=== PATIENT | male | born 1980 | race Caucasian/White ===

== ENCOUNTER 2022-02-12 11:46 | Inpatient (IN) | payer OTHER ==
[2022-02-12] MEDS ORDERED: ONDANSETRON *ODT* 4 MG TABLET SL PRN (12:28)
[2022-02-12] MEDS ORDERED: BENZOCAINE/MENTHOL (CHLORASEPTIC ) LOZENGE MM PRN (12:28)
[2022-02-12] MEDS ORDERED: MAG HYDROX/AL HYDROX/SIMETH 30 ML UNIT-DOSE CUP PO PRN (12:28)
[2022-02-12] MEDS ORDERED: DICYCLOMINE HCL 10 MG CAPSULE PO PRN (12:28)
[2022-02-12] MEDS ORDERED: MAGNESIUM CITRATE 300 ML BOTTLE PO PRN (12:28)
[2022-02-12] MEDS ORDERED: diazePAM 5 MG TABLET PO ONE (12:28)
[2022-02-12] MEDS ORDERED: NICOTINE 10 MG CARTRIDGE (INHALER) IH PRN (12:28)
[2022-02-12] MEDS ORDERED: MAGNESIUM HYDROX 2400MG/30ML ORAL SUSPENSION 30 ML CUP PO PRN (12:28)
[2022-02-12] MEDS ORDERED: ACETAMINOPHEN 325 MG TABLET (FP) PO PRN ×2 (12:28)
[2022-02-12] MEDS ORDERED: METHOCARBAMOL 500 MG TABLET PO PRN (12:28)
[2022-02-12] MEDS ORDERED: IBUPROFEN 400 MG TABLET (FP) PO PRN (12:28)
[2022-02-12] MEDS ORDERED: LOPERAMIDE HCL 2 MG CAPSULE PO PRN (12:28)
[2022-02-12] MEDS ORDERED: BISMUTH SUBSALICYLATE 524 MG/30 ML PO PRN (12:28)
[2022-02-12] MEDS ORDERED: DOCUSATE SODIUM 100 MG CAPSULE (FP) PO PRN (12:32)
[2022-02-12] MEDS ORDERED: LORATADINE 10 MG TABLET PO PRN (12:32)
[2022-02-12] MEDS ORDERED: FAMOTIDINE 20 MG TABLET PO PRN (12:32)
[2022-02-12] MEDS ORDERED: SENNOSIDES 8.6MG TABLET (FP) PO PRN (12:32)
[2022-02-12 13:45] VITALS: BMI 35.5
[2022-02-12] MEDS: hydrOXYzine PAMOATE 25 MG CAPSULE (FP) PO SCH ×3 (15:06→22:15)
[2022-02-12] MEDS: PRENATAL VITAMINS W/ FOLIC ACID TABLET (FP) PO SCH (15:06)
[2022-02-12] MEDS: NICOTINE 14 MG/24 HOURS TOPICAL PATCH TD SCH (15:09)
[2022-02-12 15:40] LABS: HEMOGLOBIN 14.7 GM/dL (11.7-16.9); MCH 29.5 pg (25.7-33.7); MCHC 34.1 g/dl (32.0-35.9); MEAN CELL VOLUME 86.6 fl (80-96); MEAN PLT VOLUME 8.3 fl (7.5-11.1); PLATELET COUNT 99 10^3/uL (134-434); RBC 4.96 M/mm3 (4.00-5.60); RDW 16.5 % (11.9-15.9); WHITE BLOOD COUNT 9.4 K/mm3 (4.0-10.0)
[2022-02-12 15:46] LABS: ALBUMIN 3.7 g/dl (3.4-5.0); BLOOD UREA NITROGEN 5.6 mg/dL (7-18)
[2022-02-12 15:49] LABS: CREATININE 0.7 mg/dL (0.55-1.3)
[2022-02-12 15:51] LABS: BILIRUBIN,TOTAL 2.7 mg/dL (0.2-1); TOT PROT 8.2 g/dl (6.4-8.2)
[2022-02-12] MEDS: diazePAM 5 MG TABLET PO SCH ×2 (17:49→22:15)
[2022-02-12] MEDS: THIAMINE HCL 100 MG TABLET (FP) PO SCH (22:15)
[2022-02-12] MEDS: TRIAMCINOLONE ACET 0.025% CREAM 15 GM TUBE TP SCH (22:16)
[2022-02-12] MEDS: MELATONIN 5 MG TABLETS PO SCH (22:16)
[2022-02-12] MEDS: MOMETASONE FUROATE 220 MCG/IH INHALER IH SCH (22:16)
[2022-02-13] MEDS: ALBUTEROL SO4 HFA INHALER IH PRN ×2 (01:44→22:23)
[2022-02-13] MEDS: hydrOXYzine PAMOATE 25 MG CAPSULE (FP) PO SCH ×5 (05:13→22:20)
[2022-02-13] MEDS: diazePAM 5 MG TABLET PO SCH ×4 (05:13→22:20)
[2022-02-13] MEDS ORDERED: methaDONE HCL 10 MG TABLET ONE (09:28)
[2022-02-13] MEDS ORDERED: methaDONE HCL 40 MG DISPERSABLE TABLET ONE (09:29)
[2022-02-13] MEDS ORDERED: methaDONE HCL 10 MG TABLET PO ONE (10:00)
[2022-02-13] MEDS: PRENATAL VITAMINS W/ FOLIC ACID TABLET (FP) PO SCH (10:19)
[2022-02-13] MEDS: MOMETASONE FUROATE 220 MCG/IH INHALER IH SCH ×2 (10:20→22:23)
[2022-02-13] MEDS: TRIAMCINOLONE ACET 0.025% CREAM 15 GM TUBE TP SCH ×2 (10:20→22:20)
[2022-02-13] MEDS: NICOTINE 14 MG/24 HOURS TOPICAL PATCH TD SCH (10:22)
[2022-02-13] MEDS: THIAMINE HCL 100 MG TABLET (FP) PO SCH (22:20)
[2022-02-13] MEDS: MELATONIN 5 MG TABLETS PO SCH (22:20)
[2022-02-14] MEDS ORDERED: methaDONE HCL 40 MG DISPERSABLE TABLET ONE (04:26)
[2022-02-14] MEDS ORDERED: methaDONE HCL 10 MG TABLET ONE (04:26)
[2022-02-14] MEDS: diazePAM 5 MG TABLET PO SCH ×3 (05:30→22:08)
[2022-02-14] MEDS: hydrOXYzine PAMOATE 25 MG CAPSULE (FP) PO SCH ×5 (05:32→22:09)
[2022-02-14] MEDS ORDERED: methaDONE HCL 10 MG TABLET PO SCH (06:00)
[2022-02-14 06:07] LABS: SARS-CoV-2 NAA Not Detected (Not Detected)
[2022-02-14] MEDS: NICOTINE 14 MG/24 HOURS TOPICAL PATCH TD SCH (10:07)
[2022-02-14] MEDS: PRENATAL VITAMINS W/ FOLIC ACID TABLET (FP) PO SCH (10:11)
[2022-02-14] MEDS: TRIAMCINOLONE ACET 0.025% CREAM 15 GM TUBE TP SCH ×2 (10:11→22:26)
[2022-02-14] MEDS: MOMETASONE FUROATE 220 MCG/IH INHALER IH SCH ×2 (10:13→22:10)
[2022-02-14] MEDS: diazePAM 5 MG TABLET PO PRN ×2 (10:13→17:40)
[2022-02-14] MEDS: ALBUTEROL SO4 HFA INHALER IH PRN ×2 (10:15→22:12)
[2022-02-14 17:36] LABS: BILIRUBIN,TOTAL 2.9 mg/dL (0.2-1)
[2022-02-14] MEDS: THIAMINE HCL 100 MG TABLET (FP) PO SCH (22:08)
[2022-02-14] MEDS: MELATONIN 5 MG TABLETS PO SCH (22:09)
[2022-02-15] MEDS ORDERED: methaDONE HCL 10 MG TABLET ONE (04:10)
[2022-02-15] MEDS ORDERED: methaDONE HCL 40 MG DISPERSABLE TABLET ONE (04:10)
[2022-02-15] MEDS: hydrOXYzine PAMOATE 25 MG CAPSULE (FP) PO SCH (05:18)
[2022-02-15] MEDS ORDERED: diazePAM 5 MG TABLET PO SCH (06:00)
[2022-02-15 09:17] VITALS: BP 134/79; PULSE 92; TEMP 96.9
[2022-02-16] MEDS ORDERED: diazePAM 5 MG TABLET PO ONE (06:00)
== END 2022-02-15 09:26 | disposition home or self-care (01) | DRG 773 ==
LOC: YASAS 11:46 → Y6N 13:11
PROVIDERS: ADMIT Allergy & Immunology; ATTEND Allergy & Immunology
PROC: HZ2ZZZZ Detoxification Services for Substance Abuse Treatment (ICD-10-PCS; principal; 2022-02-12)
DX: F10.230 Alcohol dependence with withdrawal, uncomplicated (principal); F11.20 Opioid dependence, uncomplicated; F13.20 Sedative, hypnotic or anxiolytic dependence, uncomplicated; F12.20 Cannabis dependence, uncomplicated; F17.210 Nicotine dependence, cigarettes, uncomplicated; F19.282 Other psychoactive substance dependence with psychoactive substance-induced sleep disorder; F19.24 Other psychoactive substance dependence with psychoactive substance-induced mood disorder; J44.9 Chronic obstructive pulmonary disease, unspecified; L40.9 Psoriasis, unspecified; B18.2 Chronic viral hepatitis C
CPT/HCPCS: 36415; 80053; 82247; 84075; 84450; 85027; 86780; 87811; C9803-CS; Q0162; U0003; U0005

== ENCOUNTER 2023-12-14 01:15 | Inpatient (IN) | payer OTHER ==
[2023-12-14 01:22] VITALS: BP 147/89; PULSE 67; RESP 18; TEMP 97.8; BMI 20.3
[2023-12-14 04:00] LABS: BASO % 0.6 % (0-2.0); EOS % 1.1 % (0-4.5); HEMATOCRIT 32.4 % (35.4-49); HEMOGLOBIN 11.1 GM/dL (11.7-16.9); LYMPH % 14.8 % (8-40); MCH 29.3 pg (25.7-33.7); MCHC 34.4 g/dl (32.0-35.9); MEAN CELL VOLUME 85.2 fl (80-96); MEAN PLT VOLUME 8.3 fl (7.5-11.1); MONO % 7.1 % (3.8-10.2); NEUT % 76.4 % (42.8-82.8); PLATELET COUNT 127 10^3/uL (134-434); RDW 15.2 % (11.9-15.9); WHITE BLOOD COUNT 6.2 K/mm3 (4.0-10.0)
[2023-12-14 04:19] LABS: POTASSIUM 3.9 mmol/L (3.5-5.1)
[2023-12-14 04:21] LABS: ALBUMIN 3.6 g/dl (3.4-5.0); CALCIUM 8.8 mg/dL (8.5-10.1)
[2023-12-14 04:22] LABS: BLOOD UREA NITROGEN 14.3 mg/dL (7-18)
[2023-12-14 04:24] LABS: CREATININE 0.7 mg/dL (0.55-1.3)
[2023-12-14 04:26] LABS: BILIRUBIN,TOTAL 0.7 mg/dL (0.2-1); TOT PROT 7.1 g/dl (6.4-8.2)
[2023-12-14] MEDS ORDERED: PIPERACILLIN/TAZOB 4.5 GM 4.5 GM/100 ML BAG IVPB ONE (04:36)
[2023-12-14] MEDS ORDERED: VANCOMYCIN 1 GRAM (PRE-DOCKED) 1,000 MG/250 ML BAG IVPB ONE (04:36)
[2023-12-14] MEDS: VANCOMYCIN 1,000 MG in DEXTROSE 5%-WATER - 250 ML IVPB ONE ×3 (06:29→09:26)
[2023-12-14] MEDS: PIPERACILLIN/TAZOB 4.5 GM 4.5 GM in DEXTROSE 5%-WATER 100 ML IVPB ONE ×3 (06:29→08:42)
[2023-12-14] MEDS: DALBAVANCIN HCL 1,500 MG in DEXTROSE 5%-WATER - 500 ML IVPB ONE (07:02)
[2023-12-14] MEDS: LACTATED RINGERS SOLUTION 1000 ML INFUS.BAG IV ONE (07:41)
[2023-12-14] MEDS ORDERED: ACETAMINOPHEN INJECTION 100 ML IVPB ONE (08:04)
[2023-12-14] MEDS ORDERED: KETOROLAC TROMETHAMINE 15 MG/ML VIAL ONE (08:04)
[2023-12-14] MEDS: ACETAMINOPHEN 1000 MG/100 ML BAG IVPB ONE (08:41)
[2023-12-14] MEDS: KETOROLAC TROMETHAMINE 15 MG/ML VIAL IVPUSH ONE (08:41)
[2023-12-14] MEDS ORDERED: ALBUTEROL SO4 HFA INHALER IH PRN (08:45)
[2023-12-14] MEDS ORDERED: methaDONE HCL 40 MG DISPERSABLE TABLET ONE (09:03)
[2023-12-14] MEDS: methaDONE HCL 10 MG TABLET PO ONE (09:14)
[2023-12-14] MEDS ORDERED: ENOXAPARIN NA (PORCINE) 40 MG/0.4 ML DISP.SYRIN SQ ONE (09:57)
[2023-12-14] MEDS: ENOXAPARIN NA (PORCINE) 40 MG/0.4 ML DISP.SYRIN SQ SCH (10:00)
[2023-12-14] MEDS ORDERED: methaDONE HCL 40 MG DISPERSABLE TABLET PO SCH (10:00)
== END 2023-12-14 13:05 | disposition left against medical advice (07) | DRG 383 ==
LOC: JER 01:15 → JERBED 07:11 → J5S 11:15
PROVIDERS: ADMIT Internal Medicine; ATTEND Internal Medicine
DX: L03.032 Cellulitis of left toe (principal); F11.10 Opioid abuse, uncomplicated; J45.909 Unspecified asthma, uncomplicated; S92.912A Unspecified fracture of left toe(s), initial encounter for closed fracture; F17.210 Nicotine dependence, cigarettes, uncomplicated; Y08.89XA Assault by other specified means, initial encounter; Y93.89 Activity, other specified; Y92.89 Other specified places as the place of occurrence of the external cause; Y99.8 Other external cause status
CPT/HCPCS: 36415; 73610-TC-LT-FY; 73630-TC-LT; 80053; 85025; 86140; 87040; 93005; 93010; 99285-25

== ENCOUNTER 2024-04-01 22:52 | Inpatient (IN) | payer OTHER ==
[2024-04-01 22:58] VITALS: BMI 22.3
[2024-04-02 01:40] LABS: EOS % 1.1 % (0-4.5); HEMATOCRIT 31.7 % (35.4-49); HEMOGLOBIN 10.9 GM/dL (11.7-16.9); LYMPH % 15.3 % (8-40); MCH 28.7 pg (25.7-33.7); MCHC 34.3 g/dl (32.0-35.9); MEAN CELL VOLUME 83.5 fl (80-96); MEAN PLT VOLUME 7.7 fl (7.5-11.1); NEUT % 72.6 % (42.8-82.8); PLATELET COUNT 132 10^3/uL (134-434); RBC 3.79 M/mm3 (4.00-5.60); RDW 16.4 % (11.9-15.9)
[2024-04-02] MEDS ORDERED: PIPERACILLIN/TAZOB 4.5 GM 4.5 GM/100 ML BAG IVPB ONE (01:47)
[2024-04-02] MEDS: PIPERACILLIN/TAZOB 4.5 GM 4.5 GM in DEXTROSE 5%-WATER 100 ML IVPB ONE (02:00)
[2024-04-02 02:05] LABS: POTASSIUM 3.5 mmol/L (3.5-5.1)
[2024-04-02 02:07] LABS: ALBUMIN 3.2 g/dl (3.4-5.0); BLOOD UREA NITROGEN 19.5 mg/dL (7-18); CALCIUM 8.9 mg/dL (8.5-10.1)
[2024-04-02 02:09] LABS: CREATININE 0.7 mg/dL (0.55-1.3)
[2024-04-02 02:12] LABS: BILIRUBIN,TOTAL 0.8 mg/dL (0.2-1); TOT PROT 7.2 g/dl (6.4-8.2)
[2024-04-02] MEDS ORDERED: VANCOMYCIN 1 GRAM (PRE-DOCKED) 1,000 MG/250 ML BAG IVPB ONE (02:21)
[2024-04-02] MEDS: VANCOMYCIN 1,000 MG in DEXTROSE 5%-WATER - 250 ML IVPB ONE (02:27)
[2024-04-02] MEDS ORDERED: ACETAMINOPHEN INJECTION 100 ML IVPB ONE (04:02)
[2024-04-02] MEDS: ACETAMINOPHEN 1000 MG/100 ML BAG IVPB ONE (04:06)
[2024-04-02] MEDS ORDERED: ALBUTEROL SO4 HFA INHALER IH PRN (04:56)
[2024-04-02 06:31] LABS: PH,URINE 5.5 (5.0-8.0); URINE APPEARANCE CLEAR; URINE BILIRUBIN NEGATIVE (NEGATIVE); URINE COLOR YELLOW; URINE GLUCOSE (UA) NEGATIVE (NEGATIVE); URINE KETONE NEGATIVE (NEGATIVE); URINE LEUK ESTERASE NEGATIVE (NEGATIVE); URINE NITRITE NEGATIVE (NEGATIVE); URINE PROTEIN NEGATIVE (NEGATIVE)
[2024-04-02] MEDS ORDERED: methaDONE HCL 10 MG TABLET PO SCH (10:00)
[2024-04-02] MEDS ORDERED: ACETAMINOPHEN 325 MG TABLET (FP) PO PRN (10:00)
[2024-04-02 10:02] LABS: HEMATOCRIT 27.2 % (35.4-49); HEMOGLOBIN 9.4 GM/dL (11.7-16.9); MCH 28.6 pg (25.7-33.7); MCHC 34.5 g/dl (32.0-35.9); MEAN CELL VOLUME 82.9 fl (80-96); PLATELET COUNT 114 10^3/uL (134-434); RBC 3.28 M/mm3 (4.00-5.60); RDW 16.4 % (11.9-15.9); RETICULOCYTES 1.16 % (0.5-1.5); WHITE BLOOD COUNT 4.1 K/mm3 (4.0-10.0)
[2024-04-02 10:06] LABS: INR 1.16 (0.83-1.09)
[2024-04-02 10:16] LABS: POTASSIUM 3.8 mmol/L (3.5-5.1)
[2024-04-02 10:17] LABS: CALCIUM 8.3 mg/dL (8.5-10.1)
[2024-04-02 10:19] LABS: ALBUMIN 2.7 g/dl (3.4-5.0); BLOOD UREA NITROGEN 16.9 mg/dL (7-18); MAGNESIUM 1.9 mg/dL (1.8-2.4)
[2024-04-02 10:20] LABS: CHOLESTEROL 123 mg/dL (50-200)
[2024-04-02 10:21] LABS: CREATININE 0.6 mg/dL (0.55-1.3); LDH 187 U/L (87-246); LDL CHOLESTEROL (ONLY SJRH) 73 mg/dL (5-100); PHOSPHOROUS 3.2 mg/dL (2.5-4.9)
[2024-04-02 10:22] LABS: BILIRUBIN,TOTAL 0.7 mg/dL (0.2-1); HDL CHOLESTEROL 44 mg/dL (40-60); IRON SERUM 26 ug/dL (50-175); TOT PROT 5.8 g/dl (6.4-8.2)
[2024-04-02 10:24] LABS: TOTAL IRON BINDING CAPACITY 187 ug/dL (250-450)
[2024-04-02] MEDS: NICOTINE 7 MG/24 HOURS TOPICAL PATCH TD SCH (10:28)
[2024-04-02] MEDS: PIPERACILLIN/TAZOB 3.375 GM 3.375 GM in DEXTROSE 5%-WATER - 50 ML IVPB SCH (10:31)
[2024-04-02 11:11] LABS: HIV INTERPRETATION NEGATIVE (NEGATIVE)
[2024-04-02] MEDS: ENOXAPARIN NA (PORCINE) 40 MG/0.4 ML DISP.SYRIN SQ SCH (14:33)
[2024-04-02 14:39] LABS: BF WBC & OTHER NUCLEATED CELLS 659 /mm3
[2024-04-02 15:21] LABS: BODY FLUID MACROPHAGES 30 %; BODY FLUID MESOTHELIAL 5 %
[2024-04-02] MEDS: CEFAZOLIN SODIUM 2 GM in DEXTROSE 5%-WATER 100 ML IVPB SCH (17:20)
[2024-04-03 08:00] LABS: BASO % 0.9 % (0-2.0); EOS % 1.5 % (0-4.5); HEMATOCRIT 31.8 % (35.4-49); HEMOGLOBIN 10.6 GM/dL (11.7-16.9); LYMPH % 15.5 % (8-40); MCH 27.8 pg (25.7-33.7); MCHC 33.4 g/dl (32.0-35.9); MEAN CELL VOLUME 83.1 fl (80-96); MEAN PLT VOLUME 7.8 fl (7.5-11.1); MONO % 7.2 % (3.8-10.2); NEUT % 74.9 % (42.8-82.8); PLATELET COUNT 169 10^3/uL (134-434); RBC 3.82 M/mm3 (4.00-5.60); RDW 16.7 % (11.9-15.9); WHITE BLOOD COUNT 6.1 K/mm3 (4.0-10.0)
[2024-04-03 08:15] LABS: POTASSIUM 4.4 mmol/L (3.5-5.1)
[2024-04-03] MEDS: PIPERACILLIN/TAZOB 3.375 GM 3.375 GM in DEXTROSE 5%-WATER - 50 ML IVPB SCH (08:15)
[2024-04-03 08:16] LABS: ALBUMIN 2.6 g/dl (3.4-5.0); BLOOD UREA NITROGEN 17.1 mg/dL (7-18); CALCIUM 8.6 mg/dL (8.5-10.1); MAGNESIUM 1.9 mg/dL (1.8-2.4)
[2024-04-03 08:19] LABS: CREATININE 0.7 mg/dL (0.55-1.3)
[2024-04-03 08:20] LABS: INR 1.18 (0.83-1.09); PROTHROMBIN TIME (PATIENT) 13.5 SEC (9.7-13.0)
[2024-04-03 08:21] LABS: BILIRUBIN,TOTAL 0.6 mg/dL (0.2-1)
[2024-04-03] MEDS ORDERED: SUCCINYLCHOLINE CHLORIDE 200 MG/10 ML SYRINGE ONE (10:14)
[2024-04-03] MEDS ORDERED: PROPOFOL 40 ML ONE (10:14)
[2024-04-03] MEDS ORDERED: FENTANYL CITRATE/PF 50 MCG/ML VIAL ONE ×3 (10:17→11:03)
[2024-04-03] MEDS ORDERED: LORazepam 2 MG/ML SDV VIAL IVPUSH PRN (11:10)
[2024-04-03] MEDS ORDERED: ALBUTEROL SO4 HFA INHALER IH PRN (11:10)
[2024-04-03] MEDS ORDERED: ACETAMINOPHEN 325 MG TABLET (FP) PO PRN (11:10)
[2024-04-03 14:08] LABS: BODY FLUID ALBUMIN 1.5 g/dL (Not Estab.)
[2024-04-03 15:18] LABS: PHENCYCLIDINE,URINE NEGATIVE (NEGATIVE); URINE BARBITURATES NEGATIVE (NEGATIVE)
[2024-04-03 15:19] LABS: URINE BENZODIAZEPINES NEGATIVE (NEGATIVE)
[2024-04-03 15:29] LABS: COCAINE, UR POSITIVE (NEGATIVE); METHADONE, UR POSITIVE (NEGATIVE); OPIATES, URI POSITIVE (NEGATIVE); URINE AMPHETAMINES POSITIVE (NEGATIVE)
[2024-04-03] MEDS: VANCOMYCIN/WATER FOR INJ (PEG) 1,000 MG/200 ML BAG IVPB SCH (15:47)
[2024-04-03] MEDS ORDERED: KETOROLAC TROMETHAMINE 15 MG/ML VIAL IM PRN (15:55)
[2024-04-03] MEDS: KETOROLAC TROMETHAMINE 15 MG/ML VIAL IVPB PRN (16:25)
[2024-04-03] MEDS: KETOROLAC TROMETHAMINE 30 MG/1 ML VIAL IVPUSH ONE (16:50)
[2024-04-03] MEDS: KETOROLAC TROMETHAMINE 30 MG/1 ML VIAL IM ONE (16:51)
[2024-04-03] MEDS ORDERED: CEFAZOLIN SODIUM 2 GM in DEXTROSE 5%-WATER 100 ML IVPB SCH (18:00)
[2024-04-04 08:04] LABS: BASO % 0.8 % (0-2.0); EOS % 1.6 % (0-4.5); HEMATOCRIT 32.2 % (35.4-49); HEMOGLOBIN 11.1 GM/dL (11.7-16.9); LYMPH % 17.4 % (8-40); MCH 28.7 pg (25.7-33.7); MCHC 34.6 g/dl (32.0-35.9); MEAN PLT VOLUME 7.7 fl (7.5-11.1); MONO % 7.7 % (3.8-10.2); NEUT % 72.5 % (42.8-82.8); PLATELET COUNT 177 10^3/uL (134-434); RBC 3.88 M/mm3 (4.00-5.60); RDW 16.4 % (11.9-15.9); WHITE BLOOD COUNT 7.6 K/mm3 (4.0-10.0)
[2024-04-04 08:26] LABS: POTASSIUM 4.5 mmol/L (3.5-5.1)
[2024-04-04 08:29] LABS: ALBUMIN 2.5 g/dl (3.4-5.0); BLOOD UREA NITROGEN 19.4 mg/dL (7-18); CALCIUM 8.7 mg/dL (8.5-10.1); MAGNESIUM 1.8 mg/dL (1.8-2.4)
[2024-04-04 08:32] LABS: CREATININE 0.7 mg/dL (0.55-1.3)
[2024-04-04 08:35] LABS: BILIRUBIN,TOTAL 0.6 mg/dL (0.2-1); TOT PROT 5.9 g/dl (6.4-8.2)
[2024-04-04] MEDS: NICOTINE 7 MG/24 HOURS TOPICAL PATCH TD SCH (10:22)
[2024-04-04] MEDS: ENOXAPARIN NA (PORCINE) 40 MG/0.4 ML DISP.SYRIN SQ SCH (10:23)
[2024-04-05 08:18] LABS: BASO % 0.9 % (0-2.0); EOS % 1.7 % (0-4.5); HEMATOCRIT 31.6 % (35.4-49); LYMPH % 18.9 % (8-40); MCH 29.1 pg (25.7-33.7); MCHC 34.9 g/dl (32.0-35.9); MEAN CELL VOLUME 83.6 fl (80-96); MEAN PLT VOLUME 7.8 fl (7.5-11.1); MONO % 6.8 % (3.8-10.2); NEUT % 71.7 % (42.8-82.8); PLATELET COUNT 165 10^3/uL (134-434); RBC 3.78 M/mm3 (4.00-5.60); RDW 16.7 % (11.9-15.9); WHITE BLOOD COUNT 8.2 K/mm3 (4.0-10.0)
[2024-04-05 08:40] LABS: POTASSIUM 4.5 mmol/L (3.5-5.1)
[2024-04-05 08:45] LABS: CALCIUM 8.4 mg/dL (8.5-10.1)
[2024-04-05 08:46] LABS: ALBUMIN 2.5 g/dl (3.4-5.0); BLOOD UREA NITROGEN 19.9 mg/dL (7-18); MAGNESIUM 1.8 mg/dL (1.8-2.4)
[2024-04-05 08:49] LABS: CREATININE 0.6 mg/dL (0.55-1.3)
[2024-04-05 08:50] LABS: BILIRUBIN,TOTAL 1.1 mg/dL (0.2-1); TOT PROT 5.8 g/dl (6.4-8.2)
[2024-04-06 08:04] LABS: BASO % 0.8 % (0-2.0); HEMOGLOBIN 10.2 GM/dL (11.7-16.9); LYMPH % 19.4 % (8-40); MCH 28.4 pg (25.7-33.7); MCHC 33.9 g/dl (32.0-35.9); MEAN CELL VOLUME 83.7 fl (80-96); MEAN PLT VOLUME 7.7 fl (7.5-11.1); MONO % 7.6 % (3.8-10.2); NEUT % 71.2 % (42.8-82.8); PLATELET COUNT 161 10^3/uL (134-434); RBC 3.59 M/mm3 (4.00-5.60); RDW 16.2 % (11.9-15.9); WHITE BLOOD COUNT 7.3 K/mm3 (4.0-10.0)
[2024-04-06 08:26] LABS: POTASSIUM 4.3 mmol/L (3.5-5.1)
[2024-04-06 08:29] LABS: CALCIUM 8.9 mg/dL (8.5-10.1)
[2024-04-06 08:30] LABS: ALBUMIN 2.9 g/dl (3.4-5.0); BLOOD UREA NITROGEN 30.4 mg/dL (7-18)
[2024-04-06 08:33] LABS: CREATININE 0.8 mg/dL (0.55-1.3)
[2024-04-06 08:34] LABS: TOT PROT 6.3 g/dl (6.4-8.2)
[2024-04-06 08:35] LABS: BILIRUBIN,TOTAL 0.8 mg/dL (0.2-1)
[2024-04-06] MEDS: SULFAMETHOXAZOLE/TRIMETHOPRIM 800MG/160MG D.S. TABLET PO SCH (21:12)
[2024-04-07 08:00] LABS: BASO % 0.9 % (0-2.0); EOS % 1.2 % (0-4.5); HEMATOCRIT 29.3 % (35.4-49); HEMOGLOBIN 9.8 GM/dL (11.7-16.9); LYMPH % 17.6 % (8-40); MCH 28.2 pg (25.7-33.7); MCHC 33.6 g/dl (32.0-35.9); MEAN CELL VOLUME 83.9 fl (80-96); MEAN PLT VOLUME 7.8 fl (7.5-11.1); MONO % 7.3 % (3.8-10.2); PLATELET COUNT 130 10^3/uL (134-434); RBC 3.49 M/mm3 (4.00-5.60); RDW 16.8 % (11.9-15.9); WHITE BLOOD COUNT 5.2 K/mm3 (4.0-10.0)
[2024-04-07 08:03] LABS: INR 1.21 (0.83-1.09); PROTHROMBIN TIME (PATIENT) 13.8 SEC (9.7-13.0)
[2024-04-07 08:21] LABS: POTASSIUM 4.4 mmol/L (3.5-5.1)
[2024-04-07 08:25] LABS: CALCIUM 8.3 mg/dL (8.5-10.1)
[2024-04-07 08:26] LABS: ALBUMIN 2.6 g/dl (3.4-5.0); BLOOD UREA NITROGEN 22.2 mg/dL (7-18)
[2024-04-07 08:28] LABS: CREATININE 0.7 mg/dL (0.55-1.3)
[2024-04-07 08:30] LABS: BILIRUBIN,TOTAL 0.7 mg/dL (0.2-1); TOT PROT 5.9 g/dl (6.4-8.2)
[2024-04-07] MEDS: FUROSEMIDE 40 MG TABLET (FP) PO SCH (09:53)
[2024-04-07] MEDS: SPIRONOLACTONE 25 MG TABLET PO SCH (09:53)
[2024-04-07] MEDS: PEG 3350/NA SULF BICARB CL/KCL 4000 ML SOLN.RECON PO ONE (09:54)
[2024-04-07] MEDS: BISACODYL 5 MG TABLET.DR (FP) PO ONE (21:37)
[2024-04-08 08:06] LABS: INR 1.27 (0.83-1.09); PROTHROMBIN TIME (PATIENT) 14.2 SEC (9.7-13.0)
[2024-04-08 08:13] LABS: BASO % 0.9 % (0-2.0); EOS % 1.2 % (0-4.5); MCH 28.7 pg (25.7-33.7); MCHC 34.4 g/dl (32.0-35.9); MEAN CELL VOLUME 83.3 fl (80-96); MEAN PLT VOLUME 7.9 fl (7.5-11.1); MONO % 7.4 % (3.8-10.2); NEUT % 72.5 % (42.8-82.8); PLATELET COUNT 165 10^3/uL (134-434); RBC 3.84 M/mm3 (4.00-5.60); RDW 16.7 % (11.9-15.9); WHITE BLOOD COUNT 7.2 K/mm3 (4.0-10.0)
[2024-04-08 08:26] LABS: POTASSIUM 4.7 mmol/L (3.5-5.1)
[2024-04-08 08:29] LABS: CALCIUM 8.7 mg/dL (8.5-10.1)
[2024-04-08 08:30] LABS: ALBUMIN 2.9 g/dl (3.4-5.0); BLOOD UREA NITROGEN 17.8 mg/dL (7-18)
[2024-04-08 08:33] LABS: CREATININE 0.7 mg/dL (0.55-1.3)
[2024-04-08 08:35] LABS: BILIRUBIN,TOTAL 0.8 mg/dL (0.2-1); TOT PROT 6.3 g/dl (6.4-8.2)
[2024-04-08] MEDS ORDERED: CEFAZOLIN SODIUM 2 GM VIAL ONE (10:11)
[2024-04-08] MEDS ORDERED: FENTANYL CITRATE/PF 50 MCG/ML VIAL ONE (10:11)
[2024-04-08 11:58] VITALS: RESP 18
[2024-04-08 13:02] VITALS: BP 111/67; PULSE 54; TEMP 97.9
== END 2024-04-08 15:57 | disposition home or self-care (01) | DRG 952 ==
LOC: JER 22:52 → JERBED 04-02 03:21 → J8W 04-02 06:39
PROVIDERS: ADMIT Internal Medicine; ATTEND Nurse Practitioner Family
PROC: 0W9G3ZX Drainage of Peritoneal Cavity, Percutaneous Approach, Diagnostic (ICD-10-PCS; 2024-04-02)
PROC: 0J9P0ZX Drainage of Left Lower Leg Subcutaneous Tissue and Fascia, Open Approach, Diagnostic (ICD-10-PCS; 2024-04-03)
PROC: 0JCP0ZZ Extirpation of Matter from Left Lower Leg Subcutaneous Tissue and Fascia, Open Approach (ICD-10-PCS; 2024-04-03)
PROC: 0JBP0ZZ Excision of Left Lower Leg Subcutaneous Tissue and Fascia, Open Approach (ICD-10-PCS; 2024-04-03)
PROC: 0DB58ZX Excision of Esophagus, Via Natural or Artificial Opening Endoscopic, Diagnostic (ICD-10-PCS; 2024-04-08)
PROC: 0DBP8ZZ Excision of Rectum, Via Natural or Artificial Opening Endoscopic (ICD-10-PCS; 2024-04-08)
PROC: 0DBN8ZZ Excision of Sigmoid Colon, Via Natural or Artificial Opening Endoscopic (ICD-10-PCS; 2024-04-08)
PROC: 0DB98ZX Excision of Duodenum, Via Natural or Artificial Opening Endoscopic, Diagnostic (ICD-10-PCS; 2024-04-08)
PROC: 0DB68ZX Excision of Stomach, Via Natural or Artificial Opening Endoscopic, Diagnostic (ICD-10-PCS; principal; 2024-04-08 11:00)
DX: L02.416 Cutaneous abscess of left lower limb (principal); J44.9 Chronic obstructive pulmonary disease, unspecified; L03.116 Cellulitis of left lower limb; L40.9 Psoriasis, unspecified; D64.9 Anemia, unspecified; K74.60 Unspecified cirrhosis of liver; R18.8 Other ascites; L08.9 Local infection of the skin and subcutaneous tissue, unspecified; Z59.00 Homelessness unspecified; D12.8 Benign neoplasm of rectum; R14.0 Abdominal distension (gaseous); B19.20 Unspecified viral hepatitis C without hepatic coma; K76.6 Portal hypertension; K64.4 Residual hemorrhoidal skin tags; K64.8 Other hemorrhoids; K31.89 Other diseases of stomach and duodenum; F41.8 Other specified anxiety disorders; F10.10 Alcohol abuse, uncomplicated; B95.62 Methicillin resistant Staphylococcus aureus infection as the cause of diseases classified elsewhere; K21.00 Gastro-esophageal reflux disease with esophagitis, without bleeding; M79.5 Residual foreign body in soft tissue; K44.9 Diaphragmatic hernia without obstruction or gangrene; D12.5 Benign neoplasm of sigmoid colon; F17.210 Nicotine dependence, cigarettes, uncomplicated; F11.20 Opioid dependence, uncomplicated; S80.12XA Contusion of left lower leg, initial encounter; X58.XXXA Exposure to other specified factors, initial encounter; Y93.89 Activity, other specified; Y92.89 Other specified places as the place of occurrence of the external cause; Y99.9 Unspecified external cause status
CPT/HCPCS: 36415; 73590-TC-LT-FY; 76700-TC; 76705-TC; 76942-TC; 80053; 80061; 80307; 81003; 82042; 82150; 82465; 82945; 82977; 83010; 83036; 83540; 83550; 83615; 83735; 83986; 84100; 84157; 84478; 85025; 85027; 85045; 85610; 85651; 86140; 86704; 86705; 86709; 86803; 86850; 86900; 86901; 87040; 87070; 87075; 87077; 87081; 87086; 87102; 87116; 87186; 87205; 87206; 87210; 87340; 87389; 87517; 87522; 88108; 88305-TC; 93005; 93010; 94760; 99285-25; G0480; J0131

== ENCOUNTER 2024-04-22 19:46 | Observation (INO) | payer OTHER ==
[2024-04-22] MEDS: SODIUM CHLORIDE 1,000 ML IV STA ×2 (20:57→23:49)
[2024-04-22 21:07] LABS: HEMATOCRIT 29.8 % (35.4-49); HEMOGLOBIN 9.9 GM/dL (11.7-16.9); MCH 27.9 pg (25.7-33.7); MCHC 33.3 g/dl (32.0-35.9); MEAN CELL VOLUME 83.7 fl (80-96); PLATELET COUNT 116 10^3/uL (134-434); RBC 3.56 M/mm3 (4.00-5.60); RDW 16.4 % (11.9-15.9); WHITE BLOOD COUNT 7.9 K/mm3 (4.0-10.0)
[2024-04-22 21:13] LABS: INR 1.32 (0.83-1.09); PROTHROMBIN TIME (PATIENT) 14.8 SEC (9.7-13.0)
[2024-04-22 21:13] LABS: VENOUS BASE EXCESS -0.3 mmol/L (-2-2); VENOUS PCO2 41.8 mmHg (38-52); VENOUS PH 7.389 (7.310-7.410)
[2024-04-22 21:16] LABS: ACTIVATED PTT 28.8 SECONDS (25.2-36.5)
[2024-04-22] MEDS ORDERED: PIPERACILLIN/TAZOB 3.375 GM 3.375 GM/50 ML BAG IVPB ONE (21:22)
[2024-04-22] MEDS: PIPERACILLIN/TAZOB 3.375 GM 3.375 GM in DEXTROSE 5%-WATER - 50 ML IVPB ONE (21:26)
[2024-04-22 21:30] LABS: POTASSIUM 3.8 mmol/L (3.5-5.1)
[2024-04-22 21:32] LABS: ANISOCYTOSIS 2+; CALCIUM 8.7 mg/dL (8.5-10.1); MACROCYTOSIS 0; OVALOCYTE 1+; TARGET CELLS 1+
[2024-04-22 21:33] LABS: ALBUMIN 3.4 g/dl (3.4-5.0); MAGNESIUM 1.7 mg/dL (1.8-2.4)
[2024-04-22 21:36] LABS: CREATININE 1.1 mg/dL (0.55-1.3)
[2024-04-22 21:38] LABS: BILIRUBIN,TOTAL 0.6 mg/dL (0.2-1); TOT PROT 7.1 g/dl (6.4-8.2)
[2024-04-22] MEDS ORDERED: VANCOMYCIN 1 GRAM (PRE-DOCKED) 1,000 MG/250 ML BAG IVPB ONE (21:45)
[2024-04-22 21:48] LABS: LACTIC ACID 3.2 mmol/L (0.4-2.0)
[2024-04-22] MEDS: VANCOMYCIN 1,000 MG in DEXTROSE 5%-WATER - 250 ML IVPB ONE (21:54)
[2024-04-22] MEDS ORDERED: MAGNESIUM 1GM/D5W - 1 GM/100 ML IVPB IVPB ONE (22:54)
[2024-04-22] MEDS: MAGNESIUM SULF 50% (8.12 MEQ/2 ML-1 GM VIAL) IVPB ONE (23:33)
[2024-04-23 01:48] VITALS: BMI 20.3
[2024-04-23] MEDS: SODIUM CHLORIDE 1,000 ML IV SCH ×2 (02:45→20:40)
[2024-04-23] MEDS: MAGNESIUM 1GM/D5W 100ML - 100 ML IVPB IVPB ONE (05:55)
[2024-04-23 07:33] LABS: BASO % 0.4 % (0-2.0); EOS % 0.7 % (0-4.5); HEMATOCRIT 29.3 % (35.4-49); HEMOGLOBIN 9.7 GM/dL (11.7-16.9); LYMPH % 14.7 % (8-40); MCH 27.8 pg (25.7-33.7); MCHC 33.2 g/dl (32.0-35.9); MEAN CELL VOLUME 83.9 fl (80-96); MEAN PLT VOLUME 8.4 fl (7.5-11.1); MONO % 8.1 % (3.8-10.2); NEUT % 76.1 % (42.8-82.8); PLATELET COUNT 111 10^3/uL (134-434); RBC 3.49 M/mm3 (4.00-5.60); RDW 16.5 % (11.9-15.9); WHITE BLOOD COUNT 6.5 K/mm3 (4.0-10.0)
[2024-04-23 07:49] LABS: POTASSIUM 4.1 mmol/L (3.5-5.1)
[2024-04-23 07:50] LABS: CALCIUM 8.2 mg/dL (8.5-10.1)
[2024-04-23 07:51] LABS: ALBUMIN 2.8 g/dl (3.4-5.0); BLOOD UREA NITROGEN 27.1 mg/dL (7-18); MAGNESIUM 2.1 mg/dL (1.8-2.4)
[2024-04-23 07:54] LABS: CREATININE 0.7 mg/dL (0.55-1.3); PHOSPHOROUS 2.7 mg/dL (2.5-4.9)
[2024-04-23 07:55] LABS: BILIRUBIN,TOTAL 0.8 mg/dL (0.2-1); TOT PROT 6.2 g/dl (6.4-8.2)
[2024-04-23] MEDS ORDERED: VANCOMYCIN 1,000 MG in DEXTROSE 5%-WATER - 250 ML IVPB SCH (10:00)
[2024-04-23] MEDS ORDERED: PIPERACILLIN/TAZOB 3.375 GM 3.375 GM in DEXTROSE 5%-WATER - 50 ML IVPB SCH (10:00)
[2024-04-23] MEDS: FOLIC ACID 1 MG TABLET (FP) PO SCH (10:13)
[2024-04-23] MEDS: VANCOMYCIN/WATER FOR INJ (PEG) 1,000 MG/200 ML BAG IVPB ONE (10:13)
[2024-04-23] MEDS: PIPERACILLIN/TAZOB 3.375 GM 3.375 GM in DEXTROSE 5%-WATER - 50 ML IVPB ONE (10:13)
[2024-04-23] MEDS: THIAMINE 100 MG TABLET PO SCH (10:13)
[2024-04-23] MEDS: NICOTINE 14 MG/24 HOURS TOPICAL PATCH TD SCH (10:13)
[2024-04-23] MEDS: ENOXAPARIN NA (PORCINE) 40 MG/0.4 ML DISP.SYRIN SQ SCH (10:13)
[2024-04-23] MEDS: IRON SUCROSE INJECTION 200 MG in SODIUM CHLORIDE 100 ML IVPB ONE (10:30)
[2024-04-23] MEDS ORDERED: methaDONE HCL 40 MG DISPERSABLE TABLET PO ONE (16:00)
[2024-04-23 18:58] VITALS: RESP 18
[2024-04-23 20:46] LABS: PHENCYCLIDINE,URINE NEGATIVE (NEGATIVE); URINE BARBITURATES NEGATIVE (NEGATIVE); URINE BENZODIAZEPINES NEGATIVE (NEGATIVE)
[2024-04-23 20:47] LABS: URINE AMPHETAMINES NEGATIVE (NEGATIVE)
[2024-04-23 21:03] LABS: COCAINE, UR POSITIVE (NEGATIVE); METHADONE, UR POSITIVE (NEGATIVE); OPIATES, URI POSITIVE (NEGATIVE)
[2024-04-24 02:45] LABS: PH,URINE 6.5 (5.0-8.0); URINE APPEARANCE CLEAR; URINE BILIRUBIN NEGATIVE (NEGATIVE); URINE COLOR YELLOW; URINE GLUCOSE (UA) NEGATIVE (NEGATIVE); URINE KETONE NEGATIVE (NEGATIVE); URINE LEUK ESTERASE NEGATIVE (NEGATIVE); URINE NITRITE NEGATIVE (NEGATIVE); URINE PROTEIN NEGATIVE (NEGATIVE)
[2024-04-24 09:38] LABS: BASO % 0.4 % (0-2.0); EOS % 0.9 % (0-4.5); HEMATOCRIT 31.2 % (35.4-49); HEMOGLOBIN 10.5 GM/dL (11.7-16.9); LYMPH % 16.7 % (8-40); MCH 28.2 pg (25.7-33.7); MCHC 33.7 g/dl (32.0-35.9); MEAN CELL VOLUME 83.6 fl (80-96); MEAN PLT VOLUME 8.3 fl (7.5-11.1); MONO % 7.7 % (3.8-10.2); NEUT % 74.3 % (42.8-82.8); PLATELET COUNT 119 10^3/uL (134-434); RBC 3.74 M/mm3 (4.00-5.60); WHITE BLOOD COUNT 6.6 K/mm3 (4.0-10.0)
[2024-04-24] MEDS: NICOTINE 14 MG/24 HOURS TOPICAL PATCH TD SCH (10:01)
[2024-04-24] MEDS: FOLIC ACID 1 MG TABLET (FP) PO SCH (10:02)
[2024-04-24] MEDS: THIAMINE 100 MG TABLET PO SCH (10:02)
[2024-04-24] MEDS: ENOXAPARIN NA (PORCINE) 40 MG/0.4 ML DISP.SYRIN SQ SCH (10:02)
[2024-04-24 10:04] LABS: POTASSIUM 4.6 mmol/L (3.5-5.1)
[2024-04-24 10:07] LABS: CALCIUM 8.3 mg/dL (8.5-10.1)
[2024-04-24 10:09] LABS: ALBUMIN 2.8 g/dl (3.4-5.0); BLOOD UREA NITROGEN 18.5 mg/dL (7-18); MAGNESIUM 2.1 mg/dL (1.8-2.4)
[2024-04-24 10:10] LABS: BILIRUBIN,DIRECT 0.3 mg/dL (0.0-0.2)
[2024-04-24 10:11] LABS: CREATININE 0.6 mg/dL (0.55-1.3); PHOSPHOROUS 1.9 mg/dL (2.5-4.9)
[2024-04-24 10:12] LABS: TOT PROT 5.9 g/dl (6.4-8.2)
[2024-04-24 10:13] LABS: BILIRUBIN,TOTAL 0.6 mg/dL (0.2-1)
[2024-04-24 15:14] VITALS: BP 128/75; PULSE 57; TEMP 98.6
[2024-04-24] MEDS: methaDONE HCL 40 MG DISPERSABLE TABLET PO ONE (15:17)
[2024-04-25] MEDS ORDERED: methaDONE HCL 10 MG TABLET PO SCH (06:00)
== END 2024-04-24 16:45 | disposition home or self-care (01) ==
LOC: JER 19:46 → JERBED 20:24 → UNDOADMOB 20:24 → INTOOBSV 20:24 → J4W 04-23 00:34 → JERBED 04-23 00:34 → J4W 04-23 14:25 → JERBED 04-23 14:25 → J6S 04-23 20:33
PROVIDERS: ADMIT Internal Medicine; ATTEND Internal Medicine
PROC: 3E023GC Introduction of Other Therapeutic Substance into Muscle, Percutaneous Approach (ICD-10-PCS; principal; 2024-04-23)
PROC: 3E033GC Introduction of Other Therapeutic Substance into Peripheral Vein, Percutaneous Approach (ICD-10-PCS; 2024-04-23)
PROC: 3E03329 Introduction of Other Anti-infective into Peripheral Vein, Percutaneous Approach (ICD-10-PCS; 2024-04-23)
PROC: 3E0337Z Introduction of Electrolytic and Water Balance Substance into Peripheral Vein, Percutaneous Approach (ICD-10-PCS; 2024-04-23)
DX: L03.116 Cellulitis of left lower limb (principal); T67.5XXA Heat exhaustion, unspecified, initial encounter; F19.90 Other psychoactive substance use, unspecified, uncomplicated; R01.1 Cardiac murmur, unspecified; B19.20 Unspecified viral hepatitis C without hepatic coma; J44.9 Chronic obstructive pulmonary disease, unspecified; J45.909 Unspecified asthma, uncomplicated; D64.9 Anemia, unspecified; K70.30 Alcoholic cirrhosis of liver without ascites; F41.8 Other specified anxiety disorders; L40.9 Psoriasis, unspecified; E87.20 Acidosis, unspecified; X58.XXXA Exposure to other specified factors, initial encounter; Y93.9 Activity, unspecified; F17.200 Nicotine dependence, unspecified, uncomplicated
CPT/HCPCS: 0241U-QW; 36415; 71045-TC-FY; 73590-TC-LT-FY; 80048; 80053; 80076; 80307; 81003; 82140; 82550; 82728; 82803; 83540; 83550; 83605; 83735; 84100; 84466; 84484; 85025; 85045; 85610; 85651; 85730; 86140; 86850; 86900; 86901; 87040; 93005; 93010; 96361; 96365; 96366; 96367; 96368; 96372; 96375; 99285-25; G0378

== ENCOUNTER 2024-12-03 00:12 | Emergency (ER) | payer SELFPAY ==
[2024-12-03 00:50] VITALS: BP 113/82; PULSE 105; RESP 20; TEMP 98.8; BMI 24.4
[2024-12-03 01:48] LABS: BASO % 0.5 % (0-2.0); EOS % 0.9 % (0-4.5); HEMATOCRIT 32.4 % (35.4-49); HEMOGLOBIN 10.8 GM/dL (11.7-16.9); LYMPH % 13.6 % (8-40); MCH 26.5 pg (25.7-33.7); MCHC 33.4 g/dl (32.0-35.9); MEAN CELL VOLUME 79.3 fl (80-96); MEAN PLT VOLUME 7.9 fl (7.5-11.1); MONO % 7.1 % (3.8-10.2); NEUT % 77.9 % (42.8-82.8); PLATELET COUNT 136 10^3/uL (134-434); RBC 4.09 M/mm3 (4.00-5.60); RDW 17.2 % (11.9-15.9); WHITE BLOOD COUNT 5.3 K/mm3 (4.0-10.0)
[2024-12-03 01:55] LABS: INR 1.21 (0.83-1.09); PROTHROMBIN TIME (PATIENT) 13.2 SEC (9.7-13.0)
[2024-12-03 01:58] LABS: ACTIVATED PTT 33.9 SECONDS (25.2-36.5)
[2024-12-03 02:07] LABS: POTASSIUM 3.9 mmol/L (3.5-5.1)
[2024-12-03 02:09] LABS: ALBUMIN 3.2 g/dl (3.4-5.0); CALCIUM 8.9 mg/dL (8.5-10.1); MAGNESIUM 1.6 mg/dL (1.8-2.4)
[2024-12-03 02:10] LABS: BLOOD UREA NITROGEN 13.8 mg/dL (7-18)
[2024-12-03 02:12] LABS: CREATININE 0.8 mg/dL (0.55-1.3)
[2024-12-03 02:14] LABS: TOT PROT 6.7 g/dl (6.4-8.2)
[2024-12-03 02:17] LABS: N-TERMINAL BNP 615.3 pg/ml (5-125)
[2024-12-03] MEDS ORDERED: MAGNESIUM SULFATE IN WATER 2 GM/50 ML IVPB IVPB ONE (02:29)
[2024-12-03] MEDS: MAGNESIUM SULF 50% (8.12 MEQ/2 ML-1 GM VIAL) IVPB ONE (02:34)
[2024-12-03] MEDS ORDERED: FUROSEMIDE 40 MG TABLET (FP) ONE (05:17)
[2024-12-03] MEDS: FUROSEMIDE 40 MG TABLET (FP) PO ONE (05:30)
== END 2024-12-03 05:39 | disposition admitted as inpatient to this hospital (09) ==
LOC: JER 00:12
PROC: 3E033GC Introduction of Other Therapeutic Substance into Peripheral Vein, Percutaneous Approach (ICD-10-PCS; principal; 2024-12-03)
DX: R18.8 Other ascites (principal); E83.42 Hypomagnesemia; M79.89 Other specified soft tissue disorders
CPT/HCPCS: 0241U-QW; 36415; 71046-TC-FY; 76700-TC; 80053; 82140; 83605; 83690; 83735; 83880; 85025; 85610; 85730; 93005; 93010; 99291

== ENCOUNTER 2024-12-16 16:44 | Inpatient (IN) | payer OTHER ==
[2024-12-16 18:47] LABS: BASO % 0.3 % (0-2.0); HEMATOCRIT 30.6 % (35.4-49); MCHC 32.8 g/dl (32.0-35.9); MEAN CELL VOLUME 79.4 fl (80-96); MEAN PLT VOLUME 8.9 fl (7.5-11.1); MONO % 8.1 % (3.8-10.2); NEUT % 78.6 % (42.8-82.8); PLATELET COUNT 130 10^3/uL (134-434); RBC 3.85 M/mm3 (4.00-5.60); RDW 16.9 % (11.9-15.9); WHITE BLOOD COUNT 6.2 K/mm3 (4.0-10.0)
[2024-12-16 18:54] LABS: INR 1.34 (0.83-1.09); PROTHROMBIN TIME (PATIENT) 14.6 SEC (9.7-13.0)
[2024-12-16 18:57] LABS: ACTIVATED PTT 33.3 SECONDS (25.2-36.5)
[2024-12-16 19:06] LABS: POTASSIUM 4.3 mmol/L (3.5-5.1)
[2024-12-16 19:08] LABS: ALBUMIN 2.6 g/dl (3.4-5.0); CALCIUM 8.7 mg/dL (8.5-10.1)
[2024-12-16 19:09] LABS: MAGNESIUM 1.6 mg/dL (1.8-2.4)
[2024-12-16 19:12] LABS: CREATININE 0.7 mg/dL (0.55-1.3)
[2024-12-16 19:13] LABS: BILIRUBIN,TOTAL 0.5 mg/dL (0.2-1); TOT PROT 6.2 g/dl (6.4-8.2)
[2024-12-16 20:00] LABS: HIV INTERPRETATION NEGATIVE (NEGATIVE)
[2024-12-16] MEDS ORDERED: MAGNESIUM SULFATE IN WATER 2 GM/50 ML IVPB IVPB ONE (20:11)
[2024-12-16] MEDS: MAGNESIUM SULFATE IN WATER 2 GM/50 ML IVPB IVPB ONE (20:16)
[2024-12-17] MEDS ORDERED: LIDOCAINE HCL 1%, 10 MG/ML (20ML VIAL) ONE (00:10)
[2024-12-17] MEDS ORDERED: CEFTRIAXONE 2 GM-D5W BAG 2 GM/50 ML BAG IVPB ONE (00:46)
[2024-12-17] MEDS: LIDOCAINE HCL 1%, 10 MG/ML (50 mL VIAL) SQ ONE (00:52)
[2024-12-17 04:58] LABS: BF WBC & OTHER NUCLEATED CELLS 300 /mm3
[2024-12-17 05:40] VITALS: BMI 27.1
[2024-12-17 07:06] LABS: BODY FLUID MESOTHELIAL 10 %; BODY FLUID MONOCYTE 7 %; BODYL FLD EOSINOPHIL 1 %
[2024-12-17 07:20] LABS: BODY FLUID MACROPHAGES 2 %
[2024-12-17 09:17] LABS: HEMATOCRIT 30.7 % (35.4-49); HEMOGLOBIN 10.4 GM/dL (11.7-16.9); MCH 26.8 pg (25.7-33.7); MCHC 33.8 g/dl (32.0-35.9); MEAN CELL VOLUME 79.2 fl (80-96); MEAN PLT VOLUME 8.9 fl (7.5-11.1); PLATELET COUNT 139 10^3/uL (134-434); RBC 3.88 M/mm3 (4.00-5.60); RDW 16.7 % (11.9-15.9); WHITE BLOOD COUNT 4.8 K/mm3 (4.0-10.0)
[2024-12-17] MEDS: LACTULOSE 20 GM/30 ML UDC (FOR ORAL USE ONLY) PO SCH (09:23)
[2024-12-17 09:43] LABS: CHLORIDE 103 mmol/L (98-107); POTASSIUM 4.4 mmol/L (3.5-5.1); SODIUM 138 mmol/L (136-145)
[2024-12-17 09:48] LABS: ALBUMIN 2.8 g/dl (3.4-5.0)
[2024-12-17 09:53] LABS: ANION GAP 7 mmol/L (4-13); CALCIUM 8.8 mg/dL (8.5-10.1); CO2 28 mmol/L (21-32); GLUCOSE,RANDOM 79 mg/dL (74-106)
[2024-12-17 09:54] LABS: MAGNESIUM 1.8 mg/dL (1.8-2.4)
[2024-12-17 09:55] LABS: SGOT/AST 22 U/L (15-37)
[2024-12-17 09:56] LABS: CREATININE 0.7 mg/dL (0.55-1.3)
[2024-12-17 09:57] LABS: SGPT/ALT 16 U/L (13-61)
[2024-12-17 09:58] LABS: ALK PHOS 174 U/L (45-117); TOT PROT 6.4 g/dl (6.4-8.2)
[2024-12-17 10:09] LABS: BILIRUBIN,TOTAL 0.5 mg/dL (0.2-1)
[2024-12-17] MEDS: methaDONE HCL 40 MG DISPERSABLE TABLET PO SCH (11:39)
[2024-12-17 11:54] LABS: PHOSPHOROUS 2.9 mg/dL (2.5-4.9)
[2024-12-17] MEDS: ALBUMIN HUMAN 25% 12.5 GM/50 ML VIAL IV SCH (17:35)
[2024-12-18 07:41] LABS: HEMATOCRIT 29.7 % (35.4-49); HEMOGLOBIN 9.6 GM/dL (11.7-16.9); MCHC 32.2 g/dl (32.0-35.9); MEAN CELL VOLUME 80.8 fl (80-96); MEAN PLT VOLUME 8.9 fl (7.5-11.1); PLATELET COUNT 138 10^3/uL (134-434); RBC 3.67 M/mm3 (4.00-5.60); RDW 16.8 % (11.9-15.9)
[2024-12-18 07:58] LABS: POTASSIUM 4.5 mmol/L (3.5-5.1)
[2024-12-18 08:05] LABS: ALBUMIN 2.5 g/dl (3.4-5.0); CALCIUM 8.5 mg/dL (8.5-10.1); MAGNESIUM 1.7 mg/dL (1.8-2.4)
[2024-12-18 08:08] LABS: CREATININE 0.7 mg/dL (0.55-1.3); PHOSPHOROUS 3.8 mg/dL (2.5-4.9)
[2024-12-18 08:09] LABS: BILIRUBIN,TOTAL 0.6 mg/dL (0.2-1); TOT PROT 6.1 g/dl (6.4-8.2)
[2024-12-18 09:11] LABS: URINE BARBITURATES NEGATIVE (NEGATIVE)
[2024-12-18 09:13] LABS: OPIATES, URI NEGATIVE (NEGATIVE); PHENCYCLIDINE,URINE NEGATIVE (NEGATIVE)
[2024-12-18] MEDS: FUROSEMIDE 40 MG TABLET (FP) PO SCH (09:24)
[2024-12-18] MEDS: SPIRONOLACTONE 25 MG TABLET PO SCH (09:24)
[2024-12-18 09:44] LABS: COCAINE, UR POSITIVE (NEGATIVE); METHADONE, UR POSITIVE (NEGATIVE); URINE AMPHETAMINES NEGATIVE (NEGATIVE); URINE BENZODIAZEPINES POSITIVE (NEGATIVE)
[2024-12-18] MEDS ORDERED: CEFTRIAXONE 2 GM-D5W BAG 2 GM/50 ML BAG IVPB SCH (10:00)
[2024-12-18] MEDS: MAGNESIUM OXIDE 400 MG TABLET (FP) PO ONE (11:27)
[2024-12-18 14:16] VITALS: BP 114/64; PULSE 77; RESP 18; TEMP 98.2
[2024-12-23 13:06] LABS: BODY FLUID ALBUMIN 1.7 g/dL (Not Estab.)
== END 2024-12-18 16:00 | disposition home or self-care (01) | DRG 264 ==
LOC: JER 16:44 → JERBED 12-17 02:00 → J6S 12-17 05:00
PROVIDERS: ADMIT Student in an Organized Health Care Education/Training Program; ATTEND Internal Medicine
PROC: 0W9G3ZX Drainage of Peritoneal Cavity, Percutaneous Approach, Diagnostic (ICD-10-PCS; principal; 2024-12-17)
DX: K74.60 Unspecified cirrhosis of liver (principal); K76.6 Portal hypertension; R18.8 Other ascites; E72.20 Disorder of urea cycle metabolism, unspecified; E83.42 Hypomagnesemia; F11.20 Opioid dependence, uncomplicated; R16.0 Hepatomegaly, not elsewhere classified; R16.1 Splenomegaly, not elsewhere classified; D50.9 Iron deficiency anemia, unspecified; F19.90 Other psychoactive substance use, unspecified, uncomplicated; K76.82 Hepatic encephalopathy; Z59.00 Homelessness unspecified
CPT/HCPCS: 0241U-QW; 36415; 70450-TC; 71045-TC-FY; 74177-TC; 76700-TC; 76942-TC; 80053; 80307; 82042; 82140; 82150; 82945; 83615; 83690; 83735; 84100; 84157; 85025; 85027; 85610; 85730; 86704; 86708; 86803; 87040; 87070; 87075; 87205; 87340; 87389; 87516; 87517; 87522; 88108; 88305-TC; 93005; 93010; 99285-25; P9047; Q9967

== ENCOUNTER 2024-12-29 18:59 | Inpatient (IN) | payer OTHER ==
[2024-12-29 20:07] VITALS: BMI 25.7
[2024-12-29] MEDS ORDERED: guaiFENesin 600 MG TABLET.ER (FP) PO PRN (20:23)
[2024-12-29] MEDS ORDERED: MAGNESIUM HYDROX 2400MG/30ML ORAL SUSPENSION 30 ML CUP PO PRN (20:23)
[2024-12-29] MEDS ORDERED: BISMUTH SUBSALICYLATE 524 MG/30 ML PO PRN (20:23)
[2024-12-29] MEDS ORDERED: BENZOCAINE/MENTHOL (CHLORASEPTIC ) LOZENGE MM PRN (20:23)
[2024-12-29] MEDS ORDERED: MAG HYDROX/AL HYDROX/SIMETH 30 ML UNIT-DOSE CUP PO PRN (20:23)
[2024-12-29] MEDS ORDERED: ONDANSETRON *ODT* 4 MG TABLET SL PRN (20:23)
[2024-12-29] MEDS ORDERED: LOPERAMIDE HCL 2 MG CAPSULE PO PRN (20:23)
[2024-12-29] MEDS ORDERED: NALOXONE (NARCAN) HCL 4 MG/0.1 ML SPRAY NS PRN (20:23)
[2024-12-29] MEDS ORDERED: BENZONATATE 200 MG CAPSULE PO PRN (20:23)
[2024-12-29] MEDS ORDERED: DICYCLOMINE HCL 10 MG CAPSULE PO PRN (20:23)
[2024-12-29] MEDS ORDERED: POLYETHYLENE GLYCOL (HEALTHYLAX) 3350 17 GM PACKET PO PRN (20:23)
[2024-12-29] MEDS ORDERED: LACTULOSE 20 GM PO SCH (22:00)
[2024-12-29] MEDS: THIAMINE 100 MG TABLET PO SCH (22:23)
[2024-12-29] MEDS: MELATONIN 5 MG TABLETS PO SCH (22:23)
[2024-12-29] MEDS: LACTULOSE 20 GM/30 ML UDC (FOR ORAL USE ONLY) PO SCH (22:24)
[2024-12-29] MEDS: METHOCARBAMOL 500 MG TABLET PO PRN (22:27)
[2024-12-30] MEDS: SPIRONOLACTONE 25 MG TABLET PO SCH (09:20)
[2024-12-30] MEDS: SULFAMETHOXAZOLE/TRIMETHOPRIM 800MG/160MG D.S. TABLET PO SCH (09:20)
[2024-12-30] MEDS: methaDONE HCL 40 MG DISPERSABLE TABLET PO SCH (09:20)
[2024-12-30] MEDS: FUROSEMIDE 40 MG TABLET (FP) PO SCH (09:20)
[2024-12-30] MEDS: PRENATAL VITAMINS W/ FOLIC ACID TABLET (FP) PO SCH (09:22)
[2024-12-30] MEDS: LORazepam 2 MG TABLET PO SCH (10:17)
[2025-01-01] MEDS: LORazepam 1 MG TABLET PO SCH (05:34)
[2025-01-01 12:44] LABS: BASO % 0.8 % (0-2.0); EOS % 2.6 % (0-4.5); HEMATOCRIT 32.9 % (35.4-49); HEMOGLOBIN 10.8 GM/dL (11.7-16.9); LYMPH % 18.2 % (8-40); MCH 26.2 pg (25.7-33.7); MCHC 32.7 g/dl (32.0-35.9); MEAN CELL VOLUME 80.1 fl (80-96); MEAN PLT VOLUME 9.3 fl (7.5-11.1); MONO % 8.2 % (3.8-10.2); NEUT % 70.2 % (42.8-82.8); PLATELET COUNT 159 10^3/uL (134-434); RBC 4.11 M/mm3 (4.00-5.60); RDW 18.2 % (11.9-15.9); WHITE BLOOD COUNT 4.8 K/mm3 (4.0-10.0)
[2025-01-01 12:46] LABS: POTASSIUM 4.8 mmol/L (3.5-5.1)
[2025-01-01 12:48] LABS: ALBUMIN 3.1 g/dl (3.4-5.0); BLOOD UREA NITROGEN 19.4 mg/dL (7-18)
[2025-01-01 12:53] LABS: BILIRUBIN,TOTAL 0.5 mg/dL (0.2-1); TOT PROT 6.5 g/dl (6.4-8.2)
[2025-01-01] MEDS: LORazepam 1 MG TABLET PO PRN (14:44)
[2025-01-02] MEDS: LORazepam 0.5 MG TABLET PO SCH (05:24)
[2025-01-02] MEDS: LORazepam 0.5 MG TABLET PO PRN (16:52)
[2025-01-03] MEDS: LORazepam 0.5 MG TABLET PO ONE (05:51)
[2025-01-03 09:22] VITALS: BP 109/60; PULSE 63; RESP 18; TEMP 98
== END 2025-01-03 10:20 | disposition home or self-care (01) | DRG 773 ==
LOC: YASAS 18:59 → Y6N 21:38
PROVIDERS: ADMIT Allergy & Immunology; ATTEND Allergy & Immunology
PROC: HZ2ZZZZ Detoxification Services for Substance Abuse Treatment (ICD-10-PCS; principal; 2024-12-29)
DX: F10.230 Alcohol dependence with withdrawal, uncomplicated (principal); F13.230 Sedative, hypnotic or anxiolytic dependence with withdrawal, uncomplicated; F11.20 Opioid dependence, uncomplicated; F12.20 Cannabis dependence, uncomplicated; F17.213 Nicotine dependence, cigarettes, with withdrawal; F19.282 Other psychoactive substance dependence with psychoactive substance-induced sleep disorder; F19.280 Other psychoactive substance dependence with psychoactive substance-induced anxiety disorder; F19.24 Other psychoactive substance dependence with psychoactive substance-induced mood disorder; K70.31 Alcoholic cirrhosis of liver with ascites; K21.00 Gastro-esophageal reflux disease with esophagitis, without bleeding; B18.1 Chronic viral hepatitis B without delta-agent
CPT/HCPCS: 36415; 76604; 76705-TC; 76942-TC; 80048; 80053; 80305; 80307; 82042; 82150; 82945; 83615; 83735; 83986; 84157; 85025; 85610; 85730; 86803; 86850; 86900; 86901; 87070; 87075; 87205; 87389; 87522; 93005; 93010; 93308; 99285-25; G0378; P9047

== ENCOUNTER 2025-01-08 08:12 | Inpatient (IN) | payer OTHER ==
[2025-01-08 08:32] VITALS: BMI 29.0
[2025-01-08] MEDS ORDERED: IBUPROFEN 400 MG TABLET (FP) PO PRN (09:11)
[2025-01-08] MEDS ORDERED: MAG HYDROX/AL HYDROX/SIMETH 30 ML UNIT-DOSE CUP PO PRN (09:11)
[2025-01-08] MEDS ORDERED: MAGNESIUM HYDROX 2400MG/30ML ORAL SUSPENSION 30 ML CUP PO PRN (09:11)
[2025-01-08] MEDS ORDERED: NALOXONE (NARCAN) HCL 4 MG/0.1 ML SPRAY NS PRN (09:11)
[2025-01-08] MEDS ORDERED: guaiFENesin 600 MG TABLET.ER (FP) PO PRN (09:11)
[2025-01-08] MEDS ORDERED: LOPERAMIDE HCL 2 MG CAPSULE PO PRN (09:11)
[2025-01-08] MEDS ORDERED: BENZOCAINE/MENTHOL (CHLORASEPTIC ) LOZENGE MM PRN (09:11)
[2025-01-08] MEDS ORDERED: POLYETHYLENE GLYCOL (HEALTHYLAX) 3350 17 GM PACKET PO PRN (09:11)
[2025-01-08] MEDS ORDERED: BENZONATATE 200 MG CAPSULE PO PRN (09:11)
[2025-01-08] MEDS: PRENATAL VITAMINS W/ FOLIC ACID TABLET (FP) PO SCH (09:50)
[2025-01-08] MEDS ORDERED: PRENATAL VITAMINS W/ FOLIC ACID TABLET (FP) PO ONE (09:50)
[2025-01-08] MEDS ORDERED: SPIRONOLACTONE 100 MG PO SCH (10:00)
[2025-01-08] MEDS: SULFAMETHOXAZOLE/TRIMETHOPRIM 800MG/160MG D.S. TABLET PO SCH (10:59)
[2025-01-08] MEDS: SPIRONOLACTONE 25 MG TABLET PO SCH (10:59)
[2025-01-08] MEDS: LACTULOSE 20 GM/30 ML UDC (FOR ORAL USE ONLY) PO SCH (11:00)
[2025-01-08] MEDS: FUROSEMIDE 40 MG TABLET (FP) PO SCH (11:00)
[2025-01-08] MEDS: THIAMINE 100 MG TABLET PO SCH (21:27)
[2025-01-08] MEDS: MELATONIN 5 MG TABLETS PO SCH (21:27)
[2025-01-09] MEDS: methaDONE HCL 40 MG DISPERSABLE TABLET PO SCH (06:01)
[2025-01-09 10:09] LABS: HEMATOCRIT 34.9 % (35.4-49); HEMOGLOBIN 11.5 GM/dL (11.7-16.9); MCH 26.3 pg (25.7-33.7); MCHC 32.9 g/dl (32.0-35.9); MEAN CELL VOLUME 79.9 fl (80-96); MEAN PLT VOLUME 8.7 fl (7.5-11.1); PLATELET COUNT 132 10^3/uL (134-434); RBC 4.36 M/mm3 (4.00-5.60); RDW 17.6 % (11.9-15.9); WHITE BLOOD COUNT 4.2 K/mm3 (4.0-10.0)
[2025-01-09 10:12] LABS: POTASSIUM 4.3 mmol/L (3.5-5.1)
[2025-01-09 10:24] LABS: BILIRUBIN,TOTAL 0.8 mg/dL (0.2-1)
[2025-01-09 10:36] LABS: URINE APPEARANCE CLEAR; URINE BILIRUBIN NEGATIVE (NEGATIVE); URINE COLOR YELLOW; URINE GLUCOSE (UA) NEGATIVE (NEGATIVE); URINE KETONE NEGATIVE (NEGATIVE); URINE LEUK ESTERASE NEGATIVE (NEGATIVE); URINE NITRITE NEGATIVE (NEGATIVE); URINE PROTEIN NEGATIVE (NEGATIVE)
[2025-01-09 11:00] LABS: ALBUMIN 3.2 g/dl (3.4-5.0); BLOOD UREA NITROGEN 24.1 mg/dL (7-18); CALCIUM 8.5 mg/dL (8.5-10.1)
[2025-01-09 11:06] LABS: CREATININE 0.9 mg/dL (0.55-1.3)
[2025-01-09 11:07] LABS: TOT PROT 6.6 g/dl (6.4-8.2)
[2025-01-09 16:24] LABS: HIV INTERPRETATION NEGATIVE (NEGATIVE)
[2025-01-22 11:01] LABS: ABSOLUTE IMMATURE GRANULOCYTES 0.01 x10^3/uL (0.0-0.031); BASOPHILS # 0.02 x10^3/uL (0.01-0.08); EOSINOPHIL % 2.1 % (0.8-7.0); EOSINOPHILS # 0.08 x10^3/uL (0.04-0.54); HEMATOCRIT 35.8 % (40.1-51.0); HEMOGLOBIN 11.1 g/dL (13.7-17.5); MEAN CELL VOLUME 84.4 fl (79.0-92.2); MEAN PLT VOLUME 11.6 fl (9.4-12.4); MONOCYTE # 0.31 x10^3/uL (0.30-0.82); MONOCYTE % 8.3 % (5.3-12.2); PLATELET COUNT # 91 x10^3/uL (163-337); RDW 16.8 % (12.1-15.9)
[2025-01-22 11:04] LABS: POTASSIUM 4.4 mmol/L (3.5-5.1)
[2025-01-22 11:10] LABS: ALBUMIN 3.6 g/dl (3.4-5.0); BLOOD UREA NITROGEN 36.7 mg/dL (7-18); MAGNESIUM 1.9 mg/dL (1.8-2.4)
[2025-01-22 11:11] LABS: INR 1.26 (0.83-1.09); PROTHROMBIN TIME (PATIENT) 13.7 SEC (9.7-13.0)
[2025-01-22 11:13] LABS: CALCIUM 8.8 mg/dL (8.5-10.1)
[2025-01-22 11:14] LABS: BILIRUBIN,TOTAL 0.8 mg/dL (0.2-1)
[2025-01-22 11:15] LABS: TOT PROT 7.3 g/dl (6.4-8.2)
[2025-01-25] MEDS: CHOLECALCIFEROL (VIT D3) 400 UNIT (10 MCG) TABLET PO SCH (10:05)
[2025-01-29 06:14] VITALS: BP 113/71; PULSE 71; RESP 17; TEMP 97.5
== END 2025-01-29 09:55 | disposition home or self-care (01) | DRG 772 ==
LOC: YASAS 08:12 → Y3W 10:00
PROVIDERS: ADMIT Psychiatry & Neurology Pain Medicine; ATTEND Psychiatry & Neurology Pain Medicine
PROC: HZ42ZZZ Group Counseling for Substance Abuse Treatment, Cognitive-Behavioral (ICD-10-PCS; principal; 2025-01-08)
DX: F14.20 Cocaine dependence, uncomplicated (principal); F11.20 Opioid dependence, uncomplicated; F13.20 Sedative, hypnotic or anxiolytic dependence, uncomplicated; F10.20 Alcohol dependence, uncomplicated; F19.282 Other psychoactive substance dependence with psychoactive substance-induced sleep disorder; F19.280 Other psychoactive substance dependence with psychoactive substance-induced anxiety disorder; F19.24 Other psychoactive substance dependence with psychoactive substance-induced mood disorder; F32.A Depression, unspecified; F41.9 Anxiety disorder, unspecified; K70.30 Alcoholic cirrhosis of liver without ascites; K21.9 Gastro-esophageal reflux disease without esophagitis; Z87.891 Personal history of nicotine dependence; Z86.19 Personal history of other infectious and parasitic diseases; Z86.69 Personal history of other diseases of the nervous system and sense organs; Z59.00 Homelessness unspecified
CPT/HCPCS: 36415; 80053; 80305; 80307; 81003; 82140; 82652; 83735; 85025; 85027; 85610; 86780; 87389; 87811

== ENCOUNTER 2025-02-10 10:14 | Inpatient (IN) | payer OTHER ==
[2025-02-10 10:38] VITALS: BMI 26.3
[2025-02-10] MEDS ORDERED: MAGNESIUM HYDROX 2400MG/30ML ORAL SUSPENSION 30 ML CUP PO PRN (10:48)
[2025-02-10] MEDS ORDERED: BENZONATATE 200 MG CAPSULE PO PRN (10:48)
[2025-02-10] MEDS ORDERED: BENZOCAINE/MENTHOL (CHLORASEPTIC ) LOZENGE MM PRN (10:48)
[2025-02-10] MEDS ORDERED: IBUPROFEN 600 MG TABLET (FP) PO PRN (10:48)
[2025-02-10] MEDS ORDERED: DICYCLOMINE HCL 10 MG CAPSULE PO PRN (10:48)
[2025-02-10] MEDS ORDERED: BISMUTH SUBSALICYLATE 262 MG/15 ML BTL PO PRN (10:48)
[2025-02-10] MEDS ORDERED: MAG HYDROX/AL HYDROX/SIMETH 30 ML UNIT-DOSE CUP PO PRN (10:48)
[2025-02-10] MEDS ORDERED: guaiFENesin 600 MG TABLET.ER (FP) PO PRN (10:48)
[2025-02-10] MEDS ORDERED: LORazepam 1 MG TABLET PO PRN (10:48)
[2025-02-10] MEDS ORDERED: IBUPROFEN 400 MG TABLET (FP) PO PRN (10:48)
[2025-02-10] MEDS ORDERED: POLYETHYLENE GLYCOL (HEALTHYLAX) 3350 17 GM PACKET PO PRN (10:48)
[2025-02-10] MEDS ORDERED: NALOXONE (NARCAN) HCL 4 MG/0.1 ML SPRAY NS PRN (10:48)
[2025-02-10] MEDS ORDERED: ACETAMINOPHEN 325 MG TABLET (FP) PO PRN (10:48)
[2025-02-10] MEDS ORDERED: LOPERAMIDE HCL 2 MG CAPSULE PO PRN (10:48)
[2025-02-10] MEDS: LORazepam 2 MG TABLET PO SCH (11:28)
[2025-02-10] MEDS: NICOTINE 14 MG/24 HOURS TOPICAL PATCH TD SCH (11:32)
[2025-02-10] MEDS: PRENATAL VITAMINS W/ FOLIC ACID TABLET (FP) PO SCH (11:32)
[2025-02-10] MEDS: ACAMPROSATE CALCIUM 333 MG TABLET.DR PO SCH (14:18)
[2025-02-10] MEDS: LACTULOSE 20 GM/30 ML UDC (FOR ORAL USE ONLY) PO SCH (14:18)
[2025-02-10] MEDS: METHOCARBAMOL 500 MG TABLET PO PRN (16:42)
[2025-02-10] MEDS: MELATONIN 5 MG TABLETS PO SCH (22:25)
[2025-02-10] MEDS: THIAMINE 100 MG TABLET PO SCH (22:25)
[2025-02-11] MEDS: SULFAMETHOXAZOLE/TRIMETHOPRIM 800MG/160MG D.S. TABLET PO SCH (10:51)
[2025-02-11] MEDS: SPIRONOLACTONE 25 MG TABLET PO SCH (10:51)
[2025-02-11] MEDS: FUROSEMIDE 40 MG TABLET (FP) PO SCH (10:51)
[2025-02-11 11:17] LABS: HEMATOCRIT 36.3 % (40.1-51.0); HEMOGLOBIN 11.6 g/dL (13.7-17.5); MEAN CELL VOLUME 84.4 fl (79.0-92.2); PLATELET COUNT 142 x10^3/uL (163-337); RDW 16.4 % (12.1-15.9)
[2025-02-11 11:28] LABS: POTASSIUM 4.4 mmol/L (3.5-5.1)
[2025-02-11 11:30] LABS: CALCIUM 9.3 mg/dL (8.5-10.1)
[2025-02-11 11:31] LABS: ALBUMIN 3.5 g/dl (3.4-5.0); BLOOD UREA NITROGEN 19.8 mg/dL (7-18)
[2025-02-11 11:34] LABS: CREATININE 0.9 mg/dL (0.55-1.3)
[2025-02-11 11:36] LABS: BILIRUBIN,TOTAL 0.8 mg/dL (0.2-1); TOT PROT 7.1 g/dl (6.4-8.2)
[2025-02-11] MEDS: CHOLECALCIFEROL (VIT D3) 400 UNIT (10 MCG) TABLET PO SCH (11:40)
[2025-02-11] MEDS: methaDONE HCL 40 MG DISPERSABLE TABLET PO ONE (11:42)
[2025-02-11] MEDS: RIFAXIMIN 550 MG TABLET PO SCH (12:17)
[2025-02-12] MEDS: LORazepam 1 MG TABLET PO SCH (05:23)
[2025-02-12] MEDS: methaDONE HCL 40 MG DISPERSABLE TABLET PO SCH (05:23)
[2025-02-12] MEDS: ONDANSETRON *ODT* 4 MG TABLET SL PRN (10:38)
[2025-02-12] MEDS: hydrOXYzine PAMOATE 25 MG CAPSULE (FP) PO PRN (10:39)
[2025-02-13] MEDS ORDERED: LORazepam 0.5 MG TABLET PO PRN
[2025-02-13] MEDS: LORazepam 0.5 MG TABLET PO SCH (05:38)
[2025-02-14] MEDS: LORazepam 0.5 MG TABLET PO ONE ×2 (06:19→06:21)
[2025-02-14 13:10] VITALS: BP 110/71; PULSE 75; RESP 18; TEMP 97.8
== END 2025-02-14 03:35 | disposition home or self-care (01) | DRG 773 ==
LOC: YASAS 10:14 → Y6N 11:21
PROVIDERS: ADMIT Allergy & Immunology; ATTEND Allergy & Immunology
PROC: HZ2ZZZZ Detoxification Services for Substance Abuse Treatment (ICD-10-PCS; principal; 2025-02-10)
DX: F10.230 Alcohol dependence with withdrawal, uncomplicated (principal); F13.20 Sedative, hypnotic or anxiolytic dependence, uncomplicated; F11.20 Opioid dependence, uncomplicated; F17.213 Nicotine dependence, cigarettes, with withdrawal; F19.282 Other psychoactive substance dependence with psychoactive substance-induced sleep disorder; F19.280 Other psychoactive substance dependence with psychoactive substance-induced anxiety disorder; F19.24 Other psychoactive substance dependence with psychoactive substance-induced mood disorder; F41.9 Anxiety disorder, unspecified; F32.A Depression, unspecified; K70.30 Alcoholic cirrhosis of liver without ascites; B18.1 Chronic viral hepatitis B without delta-agent; R79.89 Other specified abnormal findings of blood chemistry; Z59.00 Homelessness unspecified
CPT/HCPCS: 36415; 80053; 80305; 80307; 82140; 85027; 86780; 93005; 93010; Q0162